=== PATIENT | female | born 1990 | race Caucasian/White ===

== ENCOUNTER 2023-05-31 18:42 | Emergency (ER) | payer BC ==
[2023-05-31 18:51] VITALS: TEMP 97.8
[2023-05-31] MEDS ORDERED: Augmentin 875-125 Tablet ONE (19:09)
[2023-05-31] MEDS ORDERED: TORAdol 30 mg Injection ONE (19:09)
[2023-05-31] MEDS ORDERED: NORCO 5/325 MG ONE (19:09)
[2023-05-31] MEDS: Augmentin 875-125 Tablet PO ONE (19:12)
[2023-05-31] MEDS: NORCO 5/325 MG PO ONE (19:13)
[2023-05-31] MEDS: TORAdol 30 mg Injection IM ONE (19:14)
[2023-05-31] MEDS ORDERED: Lopressor 50 MG ONE (19:43)
[2023-05-31] MEDS: Lopressor 50 MG PO STA (19:45)
[2023-05-31] MEDS ORDERED: BENADRYL 12.5 MG/5 ML ONE (19:48)
[2023-05-31] MEDS ORDERED: MAALOX ES 30 ML UNIT DOSE ONE (19:48)
[2023-05-31] MEDS ORDERED: XYLOCAINE VISCOUS 2% 15 ML CUP ONE (19:48)
[2023-05-31] MEDS: Cozaar 50 MG PO STA (20:05)
[2023-05-31] MEDS ORDERED: Hydromorphone 1 mg/ml Injection ONE (20:30)
[2023-05-31] MEDS: Hydromorphone 1 mg/ml Injection IM ONE (20:33)
[2023-05-31] MEDS: XYLOCAINE VISCOUS 2% 15 ML CUP PO ONE (20:38)
[2023-05-31] MEDS: BENADRYL 12.5 MG/5 ML PO ONE (20:38)
[2023-05-31] MEDS: MAALOX ES 30 ML UNIT DOSE PO ONE (20:39)
[2023-05-31 21:03] VITALS: RESP 18; O2SAT 98
--- NOTE | 2023-05-31 21:50 | ERPHSYRPT ---
- History of Present Illness Time Seen by Provider: 05/31/23 18:52 Source: patient Exam Limitations: no limitations Patient Subjective Stated Complaint: top right dental pain Triage Nursing Assessment: 33 yr old female pt arrives to ED via POV. Pt did drive herself. Pt presents with complaints of right, top dental pain. Pt reports that this has been going on for about 6 hours. Pt states that she "has horrible teeth". Pt reports that tooth that is bothering her has been broken for some time. Physician History: 33-year-old female with history of hypertension presented in the ER with complains of left upper jaw pain for the last 6 hours with progressive worsening sharp shooting moderate to severe with some swelling of the gums. Has history of dental caries and workup done in the past. Patient reports this tooth is broken before and now causing more pain. No fever or chills reported. Patient blood pressure is noted to be in 200s which she attributes to not taking her medications today. She denies any headache, numbness tingling focal weakness. Denies any chest pain palpitations or shortness of breath. Allergies/Adverse Reactions: No Known Drug Allergies Allergy (Verified 05/31/23 18:53) Home Medications: Dextroamphetamine/Amphetamine [Dextroamp-Amphetamin 20 mg Tab] 20 mg PO DAILY 05/31/23 [History] Losartan Potassium 50 mg [Cozaar 50 MG] 50 mg PO DAILY 05/31/23 [History] Metoprolol Succinate 50 mg [Toprol Xl 50 MG] 50 mg PO DAILY 05/31/23 [History] Hx Tetanus, Diphtheria Vaccination/Date Given: Yes (2010) Hx Influenza Vaccination/Date Given: Yes (2011) Hx Pneumococcal Vaccination/Date Given: No Travel Risk - International Travel Have you traveled outside of the country in past 3 weeks: No - Coronavirus Screening Are you exhibiting any of the following symptoms?: No Close contact with a COVID-19 positive Pt in past 14-21 Days: No - Vaccine Status Have you recieved a Covid-19 vaccination: No - Review of Systems Constitutional: No Symptoms Eyes: No Symptoms Ears, Nose, & Throat: Mouth Swelling, Loose Teeth Respiratory: No Symptoms Cardiac: No Symptoms Abdominal/Gastrointestinal: No Symptoms Musculoskeletal: No Symptoms Skin: No Symptoms Neurological: No Symptoms Endocrine: No Symptoms Hematologic/Lymphatic: No Symptoms - Past Medical History Pertinent Past Medical History: No Neurological History: No Pertinent History ENT History: No Pertinent History Cardiac History: No Pertinent History Respiratory History: No Pertinent History Endocrine Medical History: No Pertinent History Musculoskeletal History: No Pertinent History GI Medical History: No Pertinent History History: No Pertinent History Psycho-Social History: No Pertinent History Female Reproductive Disorders: No Pertinent History - Past Surgical History Past Surgical History: Yes Neuro Surgical History: No Pertinent History Cardiac: No Pertinent History Respiratory: No Pertinent History Gastrointestinal: No Pertinent History Genitourinary: No Pertinent History Female Surgical History: Section, Other Other Surgical History: 2 c-sections - Social History Smoking Status: Current every day smoker How long have you smoked: 10 years Exposure to second hand smoke: Yes Drug Use: none Patient Lives Alone: No - Female History Hx Last Menstrual Period: 05/17/2023 Hx Now: No - Nursing Vital Signs Nursing Vital Signs: Initial Vital Signs Temperature 97.8 F 05/31/23 18:42 Pulse Rate 118 H 05/31/23 18:42 Respiratory Rate 20 05/31/23 18:42 Blood Pressure 151/105 05/31/23 18:42 O2 Sat by Pulse Oximetry 100 05/31/23 18:42 Pain Scale Pain Intensity 8 - Physical Exam General Appearance: no apparent distress, alert Eye Exam: bilateral eye: normal inspection, PERRL, EOMI Ear Exam: bilateral ear: auricle normal, canal normal, TM normal Nasal Exam: normal inspection Throat Exam: normal, pharynx normal, dental tenderness (Left upper molar with caries, mild gingival swelling. No fluctuation.) Neck Exam: normal inspection, non-tender, supple, full range of motion Cardiovascular/Respiratory Exam: normal breath sounds, tachycardia Abdominal Exam: non-tender, soft Neurologic Exam: alert, oriented x 3, cooperative, body piercer II-XII nml as tested, normal mood/affect, nml cerebellar function, nml station & gait, sensation nml, No motor deficits Skin Exam: normal color SpO2 Interpretation: normal SpO2: 98 O2 Delivery: Room Air Ordered Tests: Medication Summary Discontinued Medications Generic Name Dose Route Start Last Admin Trade Name Freq PRN Reason Stop Dose Admin Hydrocodone Bitart/Acetaminophen 1 tab 05/31/23 18:53 05/31/23 19:13 Hydrocodone/Apap 5/325 1 Tab Tablet PO 05/31/23 18:54 1 tab STAT ONE Administration Hydrocodone Bitart/Acetaminophen Confirm 05/31/23 19:09 Hydrocodone/Apap 5/325 1 Tab Tablet Administered 05/31/23 19:10 Dose 1 tab .ROUTE .STK-MED ONE Al Hydrox/Mg Hydrox/Simethicone Confirm 05/31/23 19:48 Mag Hydrox/Al Hydrox/Simeth 30 Ml Udcup Administered 05/31/23 19:49 Dose 30 ml .ROUTE .STK-MED ONE Al Hydrox/Mg Hydrox/Simethicone 20 ml 05/31/23 20:37 05/31/23 20:39 Mag Hydrox/Al Hydrox/Simeth 30 Ml Udcup PO 05/31/23 20:38 20 ml STAT ONE Administration Amoxicillin/Clavulanate Potassium 875 mg 05/31/23 18:53 05/31/23 19:12 Amox Tr/Potassium Clavulanate 875 Mg Tablet PO 05/31/23 18:54 875 mg STAT ONE Administration Amoxicillin/Clavulanate Potassium Confirm 05/31/23 19:09 Amox Tr/Potassium Clavulanate 875 Mg Tablet Administered 05/31/23 19:10 Dose 875 mg .ROUTE .STK-MED ONE Diphenhydramine HCl Confirm 05/31/23 19:48 Diphenhydramine Hcl 12.5 Mg/5 Ml Oral Solution Administered 05/31/23 19:49 Dose 5 mg .ROUTE .STK-MED ONE Diphenhydramine HCl 25 mg 05/31/23 20:37 05/31/23 20:38 Diphenhydramine Hcl 12.5 Mg/5 Ml Oral Solution PO 05/31/23 20:38 25 mg STAT ONE Administration Hydromorphone HCl 1 mg 05/31/23 20:24 05/31/23 20:33 Hydromorphone 1 Mg/1ml Inj IM 05/31/23 20:25 1 mg STAT ONE Administration Hydromorphone HCl Confirm 05/31/23 20:30 Hydromorphone 1 Mg/1ml Inj Administered 05/31/23 20:31 Dose 1 mg .ROUTE .STK-MED ONE Ketorolac Tromethamine 30 mg 05/31/23 18:53 05/31/23 19:14 Ketorolac Tromethamine 30 Mg/Ml Inj IM 05/31/23 18:54 30 mg STAT ONE Administration Ketorolac Tromethamine Confirm 05/31/23 19:09 Ketorolac Tromethamine 30 Mg/Ml Inj Administered 05/31/23 19:10 Dose 30 mg .ROUTE .STK-MED ONE Lidocaine HCl Confirm 05/31/23 19:48 Lidocaine Hcl 2% Viscous 15 Ml Udcup Administered 05/31/23 19:49 Dose 150 ml .ROUTE .STK-MED ONE Lidocaine HCl 15 ml 05/31/23 20:36 05/31/23 20:38 Lidocaine Hcl 2% Viscous 15 Ml Udcup PO 05/31/23 20:37 15 ml STAT ONE Administration Losartan Potassium 50 mg 05/31/23 19:35 05/31/23 20:05 Losartan Potassium 50 Mg Tablet PO 05/31/23 19:36 50 mg ONCE STA Administration Metoprolol Tartrate 50 mg 05/31/23 19:35 05/31/23 19:45 Metoprolol Tartrate 50 Mg Tablet PO 05/31/23 19:36 50 mg ONCE STA Administration Metoprolol Tartrate Confirm 05/31/23 19:43 Metoprolol Tartrate 50 Mg Tablet Administered 05/31/23 19:44 Dose 50 mg .ROUTE .STK-MED ONE - Progress Progress: improved Progress Note: 05/31/23 21:49 33-year-old is evaluated for right upper jaw pain. Patient has no signs of acute dental abscess. She is given symptomatic treatment for pain and home dose of losartan/metoprolol. On reevaluation her blood pressure is improved in 160s. Neuroexam remained nonfocal. No chest pain palpitations or shortness of breath. She is advised about medication compliance, low-salt diet and monitoring/outpatient follow-up. Recommended outpatient dental follow-up. Discussed signs symptoms of worsening needing return to ER which she seems understanding. Stable for discharge. Counseled pt/family regarding: diagnosis, need for follow-up Medical Desision Making - Risk of complications The pt has a mod risk of morbidity or mortality based on: Need for prescription drug management - Departure Departure Disposition: Home Clinical Impression: Dental infection, Uncontrolled hypertension Condition: Stable Critical Care Time: No Referrals: MICHAEL SCHNEIDER NP [Primary Care Provider] - Follow up with PCP 2 days Instructions: Tooth Abscess (DC), Malignant Hypertension (DC) Additional Instructions: Take Tylenol/ibuprofen as needed for pain. Follow-up with your dentist for reevaluation early next week. Continue your with your blood pressure medications and monitor your blood pressure regularly, keep a log and follow-up with PCP to see if needs adjustment in dose of medication. Return to ER for persistent high blood pressure, headache, visual changes, numbness tingling focal weakness, chest pain palpitations or shortness of breath etc. Prescriptions: Ibuprofen 600 mg PO Q6HPRN PRN 10 Days #20 tablet PRN Reason: Pain Amox Tr/Potass Clav. 875 mg [Augmentin 875-125 Tablet] 875 mg PO BID #14 tablet
[2023-05-31 22:06] VITALS: BP 163/109; PULSE 62
== END 2023-05-31 22:10 | disposition home or self-care (01) ==
LOC: ED 18:42
DX: K04.7 Periapical abscess without sinus (principal); I10 Essential (primary) hypertension; R68.84 Jaw pain; Z79.899 Other long term (current) drug therapy; Z28.310 Unvaccinated for COVID-19; Z72.0 Tobacco use
CPT/HCPCS: 96372; 99283; J1170; J1885; A9270-GY